=== PATIENT | female | born 1980 | race Hispanic/Latino ===

== ENCOUNTER 2020-09-07 21:35 | Emergency (ER) | payer OTHER ==
[~2020-09-07] VITALS: Ht 160 cm; Wt 76.2 kg
[2020-09-07 21:45] VITALS: BP 102/71
[2020-09-07] MEDS ORDERED: AZIT500T PO (23:42)
[2020-09-07] MEDS ORDERED: ACET-2247 PO (23:42)
[2020-09-07 23:51] VITALS: BP 110/68
== END 2020-09-07 23:52 | disposition home or self-care (01) ==
LOC: EDH 21:35
DX: U07.1 COVID-19 (principal); B34.9 Viral infection, unspecified; F17.200 Nicotine dependence, unspecified, uncomplicated
CPT/HCPCS: 71045; 87635; 87804 ×2; 99284; C9803